=== PATIENT | female | born 1945 | race Caucasian/White ===

== ENCOUNTER → 2016-12-18 | Outpatient (CLI) | payer MEDICARE, BC | END | disposition home or self-care (01) | LOC: LABWHC1 14:10 | PROVIDERS: ATTEND Internal Medicine Endocrinology, Diabetes & Metabolism | DX: E03.9 Hypothyroidism, unspecified (principal) | CPT/HCPCS: 36415; 84443 ==

== ENCOUNTER → 2017-06-20 | Outpatient (CLI) | payer MEDICARE, BC ==
--- NOTE | 2017-06-20 11:36 | CT ---
EXAMINATION TYPE: CT brain wo con DATE OF EXAM: 06/20/2017 COMPARISON: NONE INDICATION: dizziness DLP: 1017.9 mGycm, Automated exposure control for dose reduction was used. CONTRAST: None CT of the brain is performed utilizing 3 mm thick sections through the posterior fossa and 3 mm thick sections through the remaining calvarium. Study is performed within 24 hours of arrival to the hosp [facility]. No abnormal hyperdensity is present to suggest an acute intracranial hemorrhage. No mass lesion is evident. No acute infarcts are evident. Ventricles and sulci are appropriate for the patient age. Paranasal sinuses and mastoid air cells within the [id number] are clear. Septal deviation is noted. Mild hyperostosis frontalis internus is present. IMPRESSIONS: 1. No acute intracranial process.
--- NOTE | 2017-06-20 12:34 | US ---
EXAMINATION TYPE: US carotid duplex BILAT DATE OF EXAM: 06/20/2017 COMPARISON: NONE CLINICAL HISTORY: R42 dizziness. EXAM MEASUREMENTS: RIGHT: Peak Systolic Velocity (PSV) cm/sec ----- Right CCA: 74.9 ----- Right ICA: 58.4 ----- Right ECA: 99.5 ICA/CCA ratio: 0.8 RIGHT: End Diastole cm/sec ----- Right CCA: 12.8 ----- Right ICA: 22.6 ----- Right ECA: 10.2 LEFT: Peak Systolic Velocity (PSV) cm/sec ----- Left CCA: 67.7 ----- Left ICA: 81.4 ----- Left ECA: 41.8 ICA/CCA ratio: 1.3 LEFT: End Diastole cm/sec ----- Left CCA: 12.2 ----- Left ICA: 33.5 ----- Left ECA: 0 VERTEBRALS (direction of flow): Right Vertebral: Antegrade Left Vertebral: Antegrade No significant stenosis visualized IMPRESSION: No hemodynamically significant stenosis. Mild cassidy scale plaquing within the right inter nal carotid artery and bilateral carotid bulbs.
--- NOTE | 2017-06-20 14:36 | USB ---
EXAMINATION TYPE: US breast complete RT DATE OF EXAM: 06/20/2017 COMPARISON: 11/08/2016 right breast ultrasound. CLINICAL HISTORY: R92.8 Abn mammo. Right breast ultrasound including all 4 quadrants, the retroareolar region, and axilla was performed. At the 4:00 location there is a 0.3 x 0.2 x 0.2 cm hypoechoic, avascular mass that is unchanged in si ze and morphology previously measuring 0.3 x 0.4 x 0.2 cm. This likely represents a small cyst and is probably benign. Six-month follow-up ultrasound is again recommended. At the 6:00 location there is a mass of mixed echogenicity with no definitive increased through trans mission measuring 0.5 x 0.2 x 0.4 cm previously measuring 0.4 x 0.2 cm. This likely represents a smal l cluster of cysts and again six month follow-up is recommended. At the 9:00 location there is an anechoic cyst with a well-defined posterior wall and increased throu gh transmission measuring 0.7 x 0.3 x 0.7 cm decreased in size as it previously measuring 1.0 x 0.8 x 0.4 cm. This is a benign finding and requires no further evaluation. At the 11:00 position, 3 cm from the nipple there is a 1.1 x 1.2 x 0.8 cm hypoechoic irregular mass w ith shadowing. This is a suspicious finding and ultrasound-guided core needle biopsy is recommended. Approximately 1.5 cm from this at the 11:00 position, 2 cm from the nipple there is a second hypoecho ic irregular mass measuring 1.6 x 1.5 x 1.0 cm. This is also suspicious finding and stereotactic guid ed core needle biopsy is recommended. IMPRESSION: 1. Suspicious finding. Two nipple cortical irregular shadowing masses within the right breast at the 11:00 position approximately 1.5 cm apart for which 2 site ultrasound guided core needle biopsy is re commended. 2. Probably benign findings at the 4:00 and 6:00 position for which six-month follow-up ultrasound is again recommended as these likely relate to a small cyst and cluster of cysts.
--- NOTE | 2017-06-21 17:43 | ECHOF ---
Referral Reason:R42 dizziness MEASUREMENTS -------- HEIGHT: 160.0 cm WEIGHT: 83.0 kg BP: 140/82 RVIDd: 2.9 cm (< 3.3) IVSd: 1.1 cm (0.6 - 1.1) LVIDd: 3.6 cm (3.9 - 5.3) LVPWd: 1.2 cm (0.6 - 1.1) IVSs: 1.3 cm LVIDs: 2.9 cm LVPWs: 1.6 cm LA Diam: 3.2 cm (2.7 - 3.8) LAESV Index (A-L): 17.71 ml/m Ao Diam: 3.0 cm (2.0 - 3.7) AV Cusp: 1.7 cm (1.5 - 2.6) LA Diam: 4.0 cm (2.7 - 3.8) MV EXCURSION: 11.453 mm (> 18.000) MV EF SLOPE: 43 mm/s (70 - 150) EPSS: 0.5 cm MV E Santosh: 0.48 m/s MV DecT: 404 ms MV A Santosh: 0.96 m/s MV E/A Ratio: 0.50 AR PHT: 580 ms RAP: 5.00 mmHg RVSP: 12.70 mmHg FINDINGS -------- Sinus rhythm. This was a technically adequate study. There is mild concentric left ventricular hypertrophy. Overall left ventricular systolic function is normal with, an EF between 55 - 60 %. The right ventricle is normal in size. Normal LA size by volume 22+/-6 ml/m2. The right atrial size is normal. There is mild aortic valve sclerosis. There is mild aortic regurgitation. Mild mitral annular calcification present. Mild mitral regurgitation is present. Mild tricuspid regurgitation present. There is no evidence of pulmonary hypertension. The right ventricular systolic pressure, as measured by Doppler, is 12.70mmHg. Trace/mild (physiologic) pulmonic regurgitation. The aortic root size is normal. There is no pericardial effusion. CONCLUSIONS -------- 1. There is mild concentric left ventricular hypertrophy. 2. Trace/mild (physiologic) pulmonic regurgitation. 3. There is no pericardial effusion. 4. Overall left ventricular systolic function is normal with, an EF between 55 - 60 %. 5. There is mild aortic valve sclerosis. 6. There is mild aortic regurgitation. 7. Mild mitral annular calcification present. 8. Mild mitral regurgitation is present. 9. Mild tricuspid regurgitation present. 10. There is no evidence of pulmonary hypertension. 11. The right ventricular systolic pressure, as measured by Doppler, is 12.70mmHg. BELT LOOP MACHINE OPERATOR: Courtney Dhillon RDCS
== END | disposition home or self-care (01) ==
LOC: RADCTMAIN 11:03
PROVIDERS: ATTEND Family Medicine
DX: R92.8 Other abnormal and inconclusive findings on diagnostic imaging of breast (principal); I65.23 Occlusion and stenosis of bilateral carotid arteries; I08.3 Combined rheumatic disorders of mitral, aortic and tricuspid valves; R42 Dizziness and giddiness
CPT/HCPCS: 70450; 93306; 93880

== ENCOUNTER → 2017-06-25 | Outpatient (CLI) | payer MEDICARE, BC | LOC: LABWHC1 09:43 | PROVIDERS: ATTEND Internal Medicine Endocrinology, Diabetes & Metabolism | DX: E03.8 Other specified hypothyroidism (principal) | CPT/HCPCS: 36415; 84443 ==

== ENCOUNTER → 2017-07-02 | Day surgery (SDC) | payer MEDICARE, BC ==
[2017-07-02 07:32] VITALS: RESP 12
[2017-07-02 09:03] VITALS: BP 143/83; PULSE 62; TEMP 98.3
--- NOTE | 2017-07-02 12:24 | USB ---
EXAMINATION TYPE: US biopsy breast VAD RT, MG diagnostic mammo RT wo CAD DATE OF EXAM: 07/02/2017 CLINICAL HISTORY: R92.8 ABN Mammogram. 2 site biopsy was recommended at the right 11:00 periareolar region however the second site could not be confidently localized and therefore biopsy was obtained at a single site at the 11:00 position. TECHNIQUE: Ultrasound guided core biopsy of right breast. COMPARISON: NONE FINDINGS: The procedure of ultrasound guided core biopsy was explained to the patient. Benefits, alternatives, and risks were discussed. An informed consent was then obtained. The patient was placed in supine positioning for imaging and for the procedure. The overlying skin was prepped and draped in usual sterile fashion. Lidocaine buffered with bicarbonate was used as anesthetic into the skin and subcutaneous tissue up to area of concern in the right 11:00 breast 3 cm from the nipple. A kaden was made with surgical scalpel. Under ultrasound guidance, a 12-gauge vacuum assisted biopsy gun device was used to obtain 5 core samples. Following this, a biopsy clip was left in lesion. This procedural mammogram demonstrates appropriate deployment. The patient tolerated the procedure well without any immediate complication. The patient was kept in the radiology department for short stay after the procedure and then discharged home in stable condition. IMPRESSION: Successful, uncomplicated ultrasound guided core biopsy of area of concern in the right breast, full pathology results to follow. See above discussion Pathology Results: Benign BREAST, RIGHT, 11:00, CORE BIOPSY: FIBROCYSTIC CHANGES INCLUDING FIBROSIS AND CYSTS. Recommendation Follow up ultrasound of the right breast in 6 months. YVES
== END ==
LOC: RADUSWWP 06:57
PROVIDERS: ATTEND Surgery
DX: N60.31 Fibrosclerosis of right breast (principal); N64.89 Other specified disorders of breast; R92.8 Other abnormal and inconclusive findings on diagnostic imaging of breast
CPT/HCPCS: 88305; 19083; G0206; A4648; J2001

== ENCOUNTER → 2017-07-24 | Outpatient (CLI) | payer MEDICARE, BC ==
--- NOTE | 2017-07-26 06:54 | ENG ---
ELECTRONYSTAGMOGRAM REPORT VNG REPORT: AGE: 72 VNG INDICATIONS: A 72-year-old female with dizziness onset 6 weeks ago of sudden onset staying the same, occurring in spells every few days lasting from a few minutes to a few hours. Dizziness can be precipitated by rolling over right or left in bed, going from a lying to a seated position, looking up or head back position, turning the head left or right, bending over or head down position or moving the head. Denies difficulty with hearing. Has steady tinnitus in both ears. Has occasional double vision. VNG FINDINGS: Saccades shows intact peak velocities, accuracies and latencies. Gaze with fixation shows no nystagmus in any of the directions of gaze including centrally with vision denied. Tracking shows no significant breakups. Optokinetic nystagmus shows no significant asymmetries at faster or slower speeds. Static position testing in 6 different positions with eyes opened and then with vision denied shows no elicitation of nystagmus. Oscoda-Hallpike maneuvers are negative bilaterally. Caloric testing shows a 4% unilateral right caloric weakness, which is within normal limits. Fixation index negative. IMPRESSION: Unremarkable VNG study. No evidence for vestibulopathy or benign positional vertigo. MMODL / IJN: [id number] /
== END | disposition home or self-care (01) ==
LOC: NEUROMAIN 08:49
PROVIDERS: ATTEND Otolaryngology
DX: R42 Dizziness and giddiness (principal)
CPT/HCPCS: 92537; 92540

== ENCOUNTER → 2017-08-08 | Outpatient (CLI) | payer MEDICARE, BC ==
[2017-08-08 10:40] LABS: Blood Urea Nitrogen 13 mg/dL (7-17); Non-African American GFR(MDRD) >60 (>60 ml/min/1.73 sqM)
== END | disposition home or self-care (01) ==
LOC: LABWHC1 09:39
PROVIDERS: ATTEND Otolaryngology
DX: Z01.812 Encounter for preprocedural laboratory examination (principal); R51 Headache; R42 Dizziness and giddiness; H53.2 Diplopia
CPT/HCPCS: 36415; 82565; 84520

== ENCOUNTER → 2017-08-16 | Outpatient (CLI) | payer MEDICARE, BC ==
--- NOTE | 2017-08-16 14:30 | CT ---
EXAMINATION TYPE: CT brain w con DATE OF EXAM: 08/16/2017 COMPARISON: 06/20/2017 INDICATION: headaches, dizziness DLP: 1079 mGycm, Automated exposure control for dose reduction was used. CONTRAST: [address] of the brain is performed utilizing 3 mm thick sections through the posterior fossa and 3 mm thick sections through the remaining calvarium. Study is performed within 24 hours of arrival to the hosp [facility]. No abnormal hyperdensity is present to suggest an acute intracranial hemorrhage. No mass lesion is evident. No acute infarcts are evident. Ventricles and sulci are appropriate for the patient age. Paranasal sinuses and mastoid air cells within the [id number] are clear. No abnormal enhancement is evident. IMPRESSIONS: 1. Unremarkable post contrast CT brain.
== END | disposition home or self-care (01) ==
LOC: RADCTMAIN 13:14
PROVIDERS: ATTEND Otolaryngology
DX: R51 Headache (principal); R42 Dizziness and giddiness
CPT/HCPCS: 70460; Q9967

== ENCOUNTER → 2018-01-03 | Outpatient (CLI) | payer MEDICARE, BC | END | disposition home or self-care (01) | LOC: LABWHC1 15:41 | PROVIDERS: ATTEND Internal Medicine Endocrinology, Diabetes & Metabolism | DX: E03.8 Other specified hypothyroidism (principal) | CPT/HCPCS: 36415; 84443 ==

== ENCOUNTER → 2018-03-10 | Outpatient (CLI) | payer MEDICARE, BC ==
--- NOTE | 2018-03-11 08:26 | USB ---
Reason for exam: follow-up at short interval from prior study. History: Patient is postmenopausal and history of other cancer. Benign US biopsy breast VAD RT of the right breast, July 02, 2017. Benign excisional biopsy of the left breast, March 19, 2000. Benign excisional biopsy of the right breast, 1995. Benign excisional biopsy of the left breast, 1993. Physical Findings: Nurse did not find any significant physical abnormalities on exam. US Breast RT Right breast ultrasound includes all four quadrants, the retroareolar region and axilla. Finding demonstrates a 0.7 x 0.4 x 0.2cm unchanged lesion at 5 o'clock, a 0.7 x 0.9 x 0.3cm oval, cystic, benign appearing lesion at 9 o'clock and a clip seen at heterogeneous, dense tissue at 11 o'clock, unchanged from priors. These results were verbally communicated with the patient and result sheet given to the patient on 03/10/18. ASSESSMENT: Benign, BI-RAD 2 RECOMMENDATION: Routine screening mammogram of both breasts in 8 months. Back on schedule for October 2018.
== END | disposition home or self-care (01) ==
LOC: RADUSWWP 08:05
PROVIDERS: ATTEND Family Medicine
DX: R92.8 Other abnormal and inconclusive findings on diagnostic imaging of breast (principal)

== ENCOUNTER 2018-07-02 08:05 | Observation (INO) | payer MEDICARE, BC ==
--- NOTE | 2018-07-02 08:35 | ED ---
General Adult HPI - General Chief complaint: Neuro Symptoms/Deficit Stated complaint: lt sided facial/hand numbess Time Seen by Provider: 07/02/18 08:21 Source: patient, RN notes reviewed Mode of arrival: ambulatory Limitations: no limitations - History of Present Illness Initial comments: Patient is a pleasant 73-year-old female presenting to the emergency department with tingling of the left face and left hand. Patient woke up around 4:15 in the morning with symptoms. Unclear exact onset. Symptoms have been steady since that time. Symptoms are mild. Patient denies any weakness or heaviness. Patient denies any speech problems. No confusion. No history of similar symptoms previously. Area of involvement is the left side of the mouth and just lateral to this. Also the left hand, mostly the thumb and index finger. - Related Data Home Medications Medication Instructions Recorded Confirmed Aspirin 81 mg PO DAILY 03/16/15 07/02/18 Levothyroxine Sodium [Synthroid] 125 mcg PO QAM 03/16/15 07/02/18 Lisinopril 10 mg PO QAM 03/16/15 07/02/18 Lovastatin 20 mg PO DAILY 03/16/15 07/02/18 Omeprazole 20 mg PO DAILY 03/16/15 07/02/18 Acetaminophen [Tylenol Arthritis] 1 each PO DAILY PRN 06/21/17 07/02/18 Ascorbic Acid [Vitamin C] 1 each PO DAILY 06/21/17 07/02/18 Calcium Carbonate/Vitamin D3 600 mg PO BID 06/21/17 07/02/18 [Calcium 600-Vit D3 200 Tablet] Cetirizine HCl 10 mg PO DAILY 06/21/17 07/02/18 Cholecalciferol [Vitamin D3] 5,000 unit PO DAILY 06/21/17 07/02/18 [place]-3 Fatty Acids/Fish Oil [Fish 1,360 mg PO DAILY 06/21/17 07/02/18 Oil 1,000 mg Softgel] Vitamin B Complex 1 each PO DAILY 06/21/17 07/02/18 Vitamin E 400 unit PO DAILY 06/21/17 07/02/18 Allergies Allergy/AdvReac Type Severity Reaction Status Date / Time No Known Allergies Allergy Verified 07/02/18 08:11 Review of Systems ROS Statement: Those systems with pertinent positive or pertinent negative responses have been documented in the HPI. ROS Other: All systems not noted in ROS Statement are negative. Constitutional: Denies: fever Eyes: Denies: eye pain ENT: Denies: ear pain Respiratory: Denies: dyspnea Cardiovascular: Denies: chest pain Endocrine: Denies: fatigue Gastrointestinal: Denies: abdominal pain Genitourinary: Denies: dysuria Musculoskeletal: Denies: back pain Skin: Denies: rash Neurological: Reports: paresthesias. Denies: headache, weakness, confusion Past Medical History Past Medical History: Cancer, Deep Vein Thrombosis (DVT), GERD/Reflux, Hyperlipidemia, Hypertension, Osteoarthritis (OA), Thyroid Disorder Additional Past Medical History / Comment(s): BASAL CELL SKIN CA, HX DVT BACK, RADIOACTIVE IODINE THYROID History of Any Multi-Drug Resistant Organisms: None Reported Past Surgical History: Section, Joint Replacement, Orthopedic Surgery, Tubal Ligation Additional Past Surgical History / Comment(s): THYROIDECTOMY, STEVIE BREAST BENIGN BX, TOTAL RIGHT KNEE, SEVERAL D&C, RIGHT HAND JOINT ARTHROPLASTY, RT ROTATOR CUFF Past Anesthesia/Blood Transfusion Reactions: Postoperative Nausea & Vomiting ( PONV) Additional Past Anesthesia/Blood Transfusion Reaction / Comment(s): WITH LONG SURGERIES Past Psychological History: No Psychological Hx Reported Smoking Status: Never smoker Past Alcohol Use History: None Reported Past Drug Use History: None Reported General Exam Limitations: no limitations General appearance: alert, in no apparent distress Head exam: Present: atraumatic Eye exam: Present: normal appearance, PERRL, EOMI. Absent: nystagmus ENT exam: Present: normal oropharynx Neck exam: Present: normal inspection Respiratory exam: Present: normal lung sounds bilaterally Cardiovascular Exam: Present: regular rate, normal rhythm GI/Abdominal exam: Present: soft. Absent: tenderness Extremities exam: Present: normal inspection Neurological exam: Present: alert, oriented X3, CN II-XII intact (Except for slight decreased sensation left lower face.) Expanded Neurological exam: Present: protecting the airway Patient oriented to: Present: person, place, time Speech: Present: fluid speech Cranial nerves: EOM's Intact: Normal, Facial Sensation: Abnormal Left (Patient states slight decreased sensation near her mouth.) Cerebellar function: Finger to Nose: Normal Sensory exam: Upper Extremity Light Touch: Abnormal Left (Patient believes there is slight decreased sensation left thumb and index finger), Lower Extremity Light Touch: Normal Motor strength exam: RUE: 5, LUE: 5, RLE: 5, LLE: 5 Eye Response: (4) open spontaneously Motor Response: (6) obeys commands Verbal Response: (5) oriented Psychiatric exam: Present: normal affect, normal mood Skin exam: Present: normal color Course Vital Signs 07/02/18 07/02/18 07/02/18 08:07 09:00 10:00 Temperature 98.4 F Pulse Rate 87 76 72 Respiratory 18 18 20 Rate Blood Pressure 179/80 149/86 169/78 O2 Sat by Pulse 94 L 99 99 Oximetry EKG Findings - EKG Comments: EKG Findings:: Normal sinus rhythm 83. MD 158. QRS 132. QT 424. QTC 498. Left axis. Right bundle branch block. No acute ST change. Medical Decision Making - Medical Decision Making Patient reevaluated and resting comfortably in bed. Patient states symptoms have unchanged. Patient and family updated on results and plan. Case was discussed in detail with Dr. Machado, who will admit his patient. - Lab Data Result diagrams: 07/02/18 08:35 07/02/18 08:35 Lab Results 07/02/18 07/02/18 07/02/18 Range/Units 08:35 08:35 08:35 WBC 7.1 (3.8-10.6) k/uL RBC 5.20 (3.80-5.40) m/uL Hgb 15.3 (11.4-16.0) gm/dL Hct 44.4 (34.0-46.0) % MCV 85.3 (80.0-100.0) fL MCH 29.4 (25.0-35.0) pg MCHC 34.5 (31.0-37.0) g/dL RDW 12.5 (11.5-15.5) % Plt Count 331 (150-450) k/uL Neutrophils % 64 % Lymphocytes % 24 % Monocytes % 6 % Eosinophils % 3 % Basophils % 1 % Neutrophils # 4.5 (1.3-7.7) k/uL Lymphocytes # 1.7 (1.0-4.8) k/uL Monocytes # 0.4 (0-1.0) k/uL Eosinophils # 0.2 (0-0.7) k/uL Basophils # 0.1 (0-0.2) k/uL PT (9.0-12.0) sec INR (<1.2) APTT (22.0-30.0) sec Sodium 141 (137-145) mmol/L Potassium 4.6 (3.5-5.1) mmol/L Chloride 106 (98-107) mmol/L Carbon Dioxide 25 (22-30) mmol/L Anion Gap 10 mmol/L BUN 12 (7-17) mg/dL Creatinine 0.77 (0.52-1.04) mg/dL Est GFR (CKD-EPI)AfAm 88 (>60 ml/min/1.73 sqM) Est GFR (CKD-EPI)NonAf 76 (>60 ml/min/1.73 sqM) Glucose 185 H (74-99) mg/dL Calcium 10.3 H (8.4-10.2) mg/dL Total Bilirubin 0.6 (0.2-1.3) mg/dL AST 27 (14-36) U/L ALT 27 (9-52) U/L Alkaline Phosphatase 72 (38-126) U/L Total Creatine Kinase 49 (30-135) U/L CK-MB (CK-2) 0.6 (0.0-2.4) ng/mL CK-MB (CK-2) Rel Index 1.2 Troponin I <0.012 (0.000-0.034) ng/mL Total Protein 7.5 (6.3-8.2) g/dL Albumin 4.3 (3.5-5.0) g/dL 07/02/18 Range/Units 08:35 WBC (3.8-10.6) k/uL RBC (3.80-5.40) m/uL Hgb (11.4-16.0) gm/dL Hct (34.0-46.0) % MCV (80.0-100.0) fL MCH (25.0-35.0) pg MCHC (31.0-37.0) g/dL RDW (11.5-15.5) % Plt Count (150-450) k/uL Neutrophils % % Lymphocytes % % Monocytes % % Eosinophils % % Basophils % % Neutrophils # (1.3-7.7) k/uL Lymphocytes # (1.0-4.8) k/uL Monocytes # (0-1.0) k/uL Eosinophils # (0-0.7) k/uL Basophils # (0-0.2) k/uL PT 9.7 (9.0-12.0) sec INR 1.0 (<1.2) APTT 23.9 (22.0-30.0) sec Sodium (137-145) mmol/L Potassium (3.5-5.1) mmol/L Chloride (98-107) mmol/L Carbon Dioxide (22-30) mmol/L Anion Gap mmol/L BUN (7-17) mg/dL Creatinine (0.52-1.04) mg/dL Est GFR (CKD-EPI)AfAm (>60 ml/min/1.73 sqM) Est GFR (CKD-EPI)NonAf (>60 ml/min/1.73 sqM) Glucose (74-99) mg/dL Calcium (8.4-10.2) mg/dL Total Bilirubin (0.2-1.3) mg/dL AST (14-36) U/L ALT (9-52) U/L Alkaline Phosphatase (38-126) U/L Total Creatine Kinase (30-135) U/L CK-MB (CK-2) (0.0-2.4) ng/mL CK-MB (CK-2) Rel Index Troponin I (0.000-0.034) ng/mL Total Protein (6.3-8.2) g/dL Albumin (3.5-5.0) g/dL - Radiology Data Radiology results: report reviewed (Computed tomography scan of the brain shows no acute intercranial process. Chronic changes.), image reviewed (Chest x-ray shows no acute process.) Disposition Clinical Impression: Transient cerebral ischemia Disposition: ADMITTED IP TO THIS HOSP Is patient prescribed a controlled substance at d/c from ED?: No Referrals: Adam Machado MD [Primary Care Provider] - 1-2 days Decision Time: 10:37
[2018-07-02 08:53] LABS: Basophils # (A) 0.1 k/uL (0-0.2); Basophils % (A) 1 %; Eosinophils # (A) 0.2 k/uL (0-0.7); Eosinophils % (A) 3 %; HCT 44.4 % (34.0-46.0); HGB 15.3 gm/dL (11.4-16.0); Lymphocytes # (A) 1.7 k/uL (1.0-4.8); Lymphocytes % (A) 24 %; MCH 29.4 pg (25.0-35.0); MCHC 34.5 g/dL (31.0-37.0); MCV 85.3 fL (80.0-100.0); Mean Platelet Volume 7.2; Monocytes # (A) 0.4 k/uL (0-1.0); Monocytes % (A) 6 %; Neutrophils # (A) 4.5 k/uL (1.3-7.7); Neutrophils % (A) 64 %; Platelet Count 331 k/uL (150-450); RDW 12.5 % (11.5-15.5); WBC 7.1 k/uL (3.8-10.6)
[2018-07-02 09:04] LABS: Albumin 4.3 g/dL (3.5-5.0); Calcium 10.3 mg/dL (8.4-10.2); Potassium 4.6 mmol/L (3.5-5.1); Total Bilirubin 0.6 mg/dL (0.2-1.3); Total Protein 7.5 g/dL (6.3-8.2)
[2018-07-02 09:09] LABS: Partial Thromboplastin Time 23.9 sec (22.0-30.0); Prothrombin Time 9.7 sec (9.0-12.0)
[2018-07-02 09:23] LABS: Creatine Kinase 49 U/L (30-135)
[2018-07-02 09:44] LABS: Creatine Kinase MB 0.6 ng/mL (0.0-2.4); Troponin I <0.012 ng/mL (0.000-0.034)
--- NOTE | 2018-07-02 09:57 | CT ---
EXAMINATION TYPE: CT brain wo con DATE OF EXAM: 07/02/2018 COMPARISON: 08/16/2017 INDICATION: Lt sided facial/hand numbness DLP: 993.9 mGycm, Automated exposure control for dose reduction was used. CONTRAST: None CT of the brain is performed utilizing 3 mm thick sections through the posterior fossa and 3 mm thick sections through the remaining calvarium. Study is performed within 24 hours of arrival to the hosp [facility]. No abnormal hyperdensity is present to suggest an acute intracranial hemorrhage. No mass lesion is evident. No acute infarcts are evident. There is mild periventricular white matter hypodensity, likely on the basis of chronic white matter ischemic changes. Ventricles and sulci are appropriate for the patient age. Paranasal sinuses and mastoid air cells within the [id number] are clear. IMPRESSIONS: 1. No acute intracranial process. 2. Chronic white matter ischemic changes
--- NOTE | 2018-07-02 10:00 | XR ---
EXAMINATION TYPE: XR chest 2V DATE OF EXAM: 07/02/2018 COMPARISON: NONE HISTORY: Altered mental status and weakness. Left-sided numbness. TECHNIQUE: Frontal and lateral views of the chest are obtained. FINDINGS: There is chronic emphysematous change without suspicious focal air space opacity, pleural effusion, or pneumothorax seen. The cardiac silhouette size is within normal limits with atheroscler otic change in the thoracic aorta. The osseous structures are demineralized. IMPRESSION: Chronic emphysematous change without acute pulmonary process.
[2018-07-02] MEDS ORDERED: ASPIRIN 325 MG TAB PO STA (10:37)
[2018-07-02] MEDS: SODIUM CHLORIDE 0.9% 1,000 ML IV SCH ×2 (12:02→20:32)
[2018-07-02 12:24] VITALS: RESP 18
[2018-07-02] MEDS ORDERED: ACETAMINOPHEN TAB 325 MG TAB PO PRN (12:56)
--- NOTE | 2018-07-02 13:25 | US ---
EXAMINATION TYPE: US carotid duplex BILAT DATE OF EXAM: 07/02/2018 COMPARISON: Carotid ultrasound June 20, 2017 CLINICAL HISTORY: Stenosis. numbness of left face and left fingers today EXAM MEASUREMENTS: RIGHT: Peak Systolic Velocity (PSV) cm/sec ----- Right CCA: 125.5cm/s after tortuous proximal portion ----- Right ICA: 65.5 ----- Right ECA: 52.4 ICA/CCA ratio: 1.3 RIGHT: End Diastole cm/sec ----- Right CCA: 16.1 ----- Right ICA: 24.1 ----- Right ECA: 10.6 LEFT: Peak Systolic Velocity (PSV) cm/sec ----- Left CCA: 52.2 ----- Left ICA: 117.4 ----- Left ECA: 27.2 ICA/CCA ratio: 2.2 LEFT: End Diastole cm/sec ----- Left CCA: 17.5 ----- Left ICA: 38.2 ----- Left ECA: 0.0 VERTEBRALS (direction of flow): Right Vertebral: Antegrade Left Vertebral: Antegrade Rhythm: Normal Tortuous right CCA and tortuous left distal ICA is noted. Mild to moderate intimal wall changes are n oted at bilateral carotid bifurcation. No significant plaque or suspicious increased velocities is seen in internal carotid arteries bilater ally. Velocity measurements upper limits of normal in the left internal carotid artery on current ivette dy. IMPRESSION: No hemodynamically significant stenosis clearly seen in either internal carotid artery. Criteria for Assigning % of Stenosis / Diameter reduction (Estimation based on the indirect measurements of the internal carotid artery velocities (ICA PSV). 1. Normal (no stenosis)=ICA PSV < 125 cm/s: ratio < 2.0: ICA EDV<40 cm/s. 2. Less than 50% stenosis=ICA PSV < 125 cm/s: ratio < 2.0: ICA EDV<40 cm/s. 3. 50 to 69% stenosis=ICA PSV of 125 to 230 cm/s: ration 2.0 ? 4.0: ICA EDV 40-100 cm/s. 4. Greater than 70% stenosis to near occlusion= ICA PSV > 230 cm/s: ratio > 4.0: ICA EDV > 100 cm/s. 5. Near occlusion= ICA PSV velocities may be low or undetectable: variable ratio and ICA EDV. 6. Total occlusion=unable to detect flow.
--- NOTE | 2018-07-02 16:38 | ECHOF ---
Referral Reason:Thrombus MEASUREMENTS -------- HEIGHT: 162.6 cm WEIGHT: 83.9 kg BP: 169/78 IVSd: 1.2 cm (0.6 - 1.1) LVIDd: 2.6 cm (3.9 - 5.3) LVPWd: 1.4 cm (0.6 - 1.1) IVSs: 1.6 cm LVIDs: 1.4 cm LVPWs: 1.7 cm Ao Diam: 2.8 cm (2.0 - 3.7) AV Cusp: 1.8 cm (1.5 - 2.6) LA Diam: 2.5 cm (2.7 - 3.8) MV EXCURSION: 12.148 mm (> 18.000) MV EF SLOPE: 29 mm/s (70 - 150) EPSS: 0.5 cm MV E Santosh: 0.53 m/s MV DecT: 341 ms MV A Santosh: 1.02 m/s MV E/A Ratio: 0.52 AV maxP.54 mmHg AV meanP.85 mmHg AR PHT: 506 ms RAP: 5.00 mmHg RVSP: 18.10 mmHg FINDINGS -------- Sinus rhythm. This was a technically good study. The left ventricular size is normal. There is mild concentric left ventricular hypertrophy. Overa ll left ventricular systolic function is normal with, an EF between 55 - 60 %. The right ventricle is normal in size and function. The left atrium is normal in size. The right atrium is normal in size. Aortic valve is trileaflet and is moderately thickened. There is mild to moderate aortic valve scle rosis. There is mild aortic regurgitation. The mitral valve leaflets are mildly thickened. Mild mitral annular calcification present. Mild m itral regurgitation is present. Mild tricuspid regurgitation present. The right ventricular systolic pressure, as measured by Doppl er, is 18.10mmHg. Pulmonic valve appears structurally normal. The aortic root size is normal. Normal inferior vena cava with normal inspiratory collapse consistent with estimated right atrial pre ssure of 5 mmHg. The pericardium is normal. CONCLUSIONS -------- 1. Sinus rhythm. 2. This was a technically good study. 3. The left ventricular size is normal. 4. There is mild concentric left ventricular hypertrophy. 5. Overall left ventricular systolic function is normal with, an EF between 55 - 60 %. 6. The right ventricle is normal in size and function. 7. The left atrium is normal in size. 8. The right atrium is normal in size. 9. Aortic valve is trileaflet and is moderately thickened. 10. There is mild to moderate aortic valve sclerosis. 11. There is mild aortic regurgitation. 12. The mitral valve leaflets are mildly thickened. 13. Mild mitral annular calcification present. 14. Mild mitral regurgitation is present. 15. Mild tricuspid regurgitation present. 16. The right ventricular systolic pressure, as measured by Doppler, is 18.10mmHg. 17. Pulmonic valve appears structurally normal. 18. The aortic root size is normal. 19. Normal inferior vena cava with normal inspiratory collapse consistent with estimated right atrial pressure of 5 mmHg. 20. The pericardium is normal. TANK COOPER: Megan Hernandez RDCS
[2018-07-02] MEDS: CALCIUM CARBONATE 500 MG CHEWABLE PO SCH (20:29)
[2018-07-02] MEDS ORDERED: ATORVASTATIN 10 MG TAB PO SCH (21:00)
[2018-07-02] MEDS ORDERED: PANTOPRAZOLE 40 MG TABLET PO SCH (21:00)
--- NOTE | 2018-07-02 21:46 | P.CNNES ---
History of Present Illness Consult date: 07/02/18 History of Present Illness: The patient is a 73-year-old right-handed white female who states that she woke up at 4:15 AM with left upper and lower lip numbness and tingling and left side of the tongue numbness and tingling. She also complained of numbness and tingling of the left thumb and index finger this morning. This has since resolved this evening. The tongue numbness continues as well as a lip tingling. She presented to the hospital with these complaints. She denied any other associated complaints such as focal weakness, headache, vertigo, speech disturbance. Review of Systems Constitutional: Denies chills, Denies fever Cardiovascular: Denies chest pain, Denies shortness of breath Respiratory: Denies cough Genitourinary: Denies dysuria, Denies hematuria Musculoskeletal: Denies myalgias Neurological: Reports as per HPI Psychiatric: Reports as per HPI Past Medical History Past Medical History: Cancer, Deep Vein Thrombosis (DVT), GERD/Reflux, Hyperlipidemia, Hypertension, Osteoarthritis (OA), Thyroid Disorder Additional Past Medical History / Comment(s): Grave's disease, thyroidectomy, arthritis multiple joints and in low back, migraines, sinus problems at times, antral ulcer, benign colon polyps, benign gastric poly, past vertigo. History of Any Multi-Drug Resistant Organisms: None Reported Past Surgical History: Section, Joint Replacement, Orthopedic Surgery, Tubal Ligation Additional Past Surgical History / Comment(s): Several D&Cs, x2, thyroidectomy, bilateral breast benign biopsies, R knee arthroscopy, total right knee arthroplasty, R hand basal joint arthroplasty, R rotator cuff repair , colonoscopy/polypectomy, EGD/polypectomy, skin cancer removed from R jaw area and from R lower eyelid, benign growth removed from R lower eyelid, wedge resection bilateral ovaries d/t cysts. Past Anesthesia/Blood Transfusion Reactions: Postoperative Nausea & Vomiting ( PONV) Additional Past Anesthesia/Blood Transfusion Reaction / Comment(s): PONV with long surgeries Smoking Status: Never smoker - Past Family History Father Additional Family Medical History / Comment(s): Father had heart problems. He from a irregular rapid heart beat at the age of 71 yrs. Mother Family Medical History: Congestive Heart Failure (CHF), Coronary Artery Disease (CAD), Diabetes Mellitus Additional Family Medical History / Comment(s): Mother at the age of 86yrs from CHF. Medications and Allergies Home Medications Medication Instructions Recorded Confirmed Type Aspirin 81 mg PO [id number]/16/15 07/02/18 History Levothyroxine Sodium [Synthroid] 125 mcg PO QAM 03/16/15 07/02/18 History Lisinopril 10 mg PO QAM 03/16/15 07/02/18 History Lovastatin 20 mg PO HS 03/16/15 07/02/18 History Omeprazole 20 mg PO HS 03/16/15 07/02/18 History Acetaminophen [Tylenol Arthritis] 1 tab PO Q6H PRN 06/21/17 07/02/18 History Ascorbic Acid [Vitamin C] 500 mg PO DAILY 06/21/17 07/02/18 History Calcium Carbonate/Vitamin D3 600 mg PO BID 06/21/17 07/02/18 History [Calcium 600-Vit D3 200 Tablet] Cetirizine HCl 10 mg PO DAILY 06/21/17 07/02/18 History Cholecalciferol [Vitamin D3] 5,000 unit PO DAILY 06/21/17 07/02/18 History [place]-3 Fatty Acids/Fish Oil [Fish 1 cap PO DAILY 06/21/17 07/02/18 History Oil 1,000 mg Softgel] Vitamin B Complex 1 cap PO DAILY 06/21/17 07/02/18 History Vitamin E 400 unit PO DAILY 06/21/17 07/02/18 History Magnesium Oxide [Mag-Ox] 400 mg PO DAILY 07/02/18 07/02/18 History Allergies Allergy/AdvReac Type Severity Reaction Status Date / Time No Known Allergies Allergy Verified 07/02/18 11:44 Physical Examination - Vital Signs Vital Signs: Vital Signs Temp Pulse Pulse Resp BP BP Pulse Ox 07/02/18 15:37 96.7 F L 66 18 166/77 96 07/02/18 13:10 96.8 F L 71 18 160/83 95 07/02/18 12:37 98.0 F 80 18 165/77 98 07/02/18 11:37 98.3 F 80 18 175/93 07/02/18 10:37 98.4 F 82 18 154/86 07/02/18 10:00 72 20 169/78 99 07/02/18 09:00 76 18 149/86 99 07/02/18 08:07 98.4 F 87 18 179/80 94 L Intake and Output 07/02/18 07/02/18 07/02/18 06:59 14:59 22:59 Intake Total 240 Output Total 800 700 Balance -800 -460 Intake: Oral 240 Output: Urine 800 700 Other: Weight 83.915 kg - Constitutional General appearance: average body habitus - EENT EENT: PERRL, hearing intact, vision intact - Respiratory Respiratory: lungs clear - Cardiovascular Cardiovascular: regular rate, normal S1 - Integumentary Integumentary: normal - Neurologic Neurologic examination: Mental status: She was awake alert and oriented 3 her speech was fluent there was no a aphasia or dysarthria. Cranial nerve examination: PERRL, EOMI, VFF, face symmetric, tongue midline Speech examination: intact Sensorimotor examination: intact Detailed motor examination: grossly full strength in all extremities Detailed sensory examination: intact - Psychiatric Psychiatric: mood/affect appropriate Results - Laboratory Findings CBC and BMP: 07/02/18 08:35 07/02/18 08:35 Abnormal Lab Findings: Abnormal Labs 07/02/18 08:35 Glucose 185 H Calcium 10.3 H Assessment and Plan (1) Transient cerebral ischemia Current Visit: Yes Status: Acute SNOMED Code(s): 406264488 Plan: The patient is a 73-year-old woman who presents to the hospital with tingling of the left face and left hand since this morning. The left hand tingling has resolved and the left lip and tongue numbness continues. The patient may have had a TIA. Her risk factors for stroke include hyperlipidemia and hypertension. She had a CAT scan of the brain in the emergency room which showed no acute intracranial process. There was chronic white matter ischemic changes. She has had a carotid ultrasound which was unremarkable. Recommend aspirin 325 mg daily. Recommend MRI scan of the brain
[2018-07-03 03:19] LABS: Cholesterol 215 mg/dL (<200); HDL Cholesterol 41 mg/dL (40-60); LDL Cholesterol,Calculated 114 mg/dL (0-99); Triglycerides 298 mg/dL (<150)
[2018-07-03] MEDS: SODIUM CHLORIDE 0.9% 1,000 ML IV SCH (06:34)
--- NOTE | 2018-07-03 08:06 | P.HPIM ---
History of Present Illness H&P Date: 07/02/18 Chief Complaint: Facial numbness This is a history and physical on a 73-year-old white female who was presenting with tingling of the left face and left hand. The patient states she woke up this morning and had significant symptomatology. The symptoms have been mild but given her advanced age and comorbidities, she is appropriately admitted for observation. No dysarthria. No swallowing difficulties. The patient has an underlying history of ALLERGIES with hypothyroidism and hypertension. Review of Systems Constitutional: Denies chills, Denies fever Eyes: denies blurred vision, denies pain Ears, nose, mouth and throat: Denies headache, Denies sore throat Respiratory: Denies cough Gastrointestinal: Denies abdominal pain, Denies diarrhea, Denies nausea, Denies vomiting Genitourinary: Denies dysuria, Denies hematuria Neurological: Reports paresthesias, Reports sensory deficit Past Medical History Past Medical History: Cancer, Deep Vein Thrombosis (DVT), GERD/Reflux, Hyperlipidemia, Hypertension, Osteoarthritis (OA), Thyroid Disorder Additional Past Medical History / Comment(s): Grave's disease, thyroidectomy, arthritis multiple joints and in low back, migraines, sinus problems at times, antral ulcer, benign colon polyps, benign gastric poly, past vertigo. History of Any Multi-Drug Resistant Organisms: None Reported Past Surgical History: Section, Joint Replacement, Orthopedic Surgery, Tubal Ligation Additional Past Surgical History / Comment(s): Several D&Cs, x2, thyroidectomy, bilateral breast benign biopsies, R knee arthroscopy, total right knee arthroplasty, R hand basal joint arthroplasty, R rotator cuff repair , colonoscopy/polypectomy, EGD/polypectomy, skin cancer removed from R jaw area and from R lower eyelid, benign growth removed from R lower eyelid, wedge resection bilateral ovaries d/t cysts. Past Anesthesia/Blood Transfusion Reactions: Postoperative Nausea & Vomiting ( PONV) Additional Past Anesthesia/Blood Transfusion Reaction / Comment(s): PONV with long surgeries Smoking Status: Never smoker - Past Family History Father Additional Family Medical History / Comment(s): Father had heart problems. He from a irregular rapid heart beat at the age of 71 yrs. Mother Family Medical History: Congestive Heart Failure (CHF), Coronary Artery Disease (CAD), Diabetes Mellitus Additional Family Medical History / Comment(s): Mother at the age of 86yrs from CHF. Medications and Allergies Home Medications Medication Instructions Recorded Confirmed Type Aspirin 81 mg PO [id number]/16/15 07/02/18 History Levothyroxine Sodium [Synthroid] 125 mcg PO QAM 03/16/15 07/02/18 History Lisinopril 10 mg PO QAM 03/16/15 07/02/18 History Lovastatin 20 mg PO HS 03/16/15 07/02/18 History Omeprazole 20 mg PO HS 03/16/15 07/02/18 History Acetaminophen [Tylenol Arthritis] 1 tab PO Q6H PRN 06/21/17 07/02/18 History Ascorbic Acid [Vitamin C] 500 mg PO DAILY 06/21/17 07/02/18 History Calcium Carbonate/Vitamin D3 600 mg PO BID 06/21/17 07/02/18 History [Calcium 600-Vit D3 200 Tablet] Cetirizine HCl 10 mg PO DAILY 06/21/17 07/02/18 History Cholecalciferol [Vitamin D3] 5,000 unit PO DAILY 06/21/17 07/02/18 History [place]-3 Fatty Acids/Fish Oil [Fish 1 cap PO DAILY 06/21/17 07/02/18 History Oil 1,000 mg Softgel] Vitamin B Complex 1 cap PO DAILY 06/21/17 07/02/18 History Vitamin E 400 unit PO DAILY 06/21/17 07/02/18 History Magnesium Oxide [Mag-Ox] 400 mg PO DAILY 07/02/18 07/02/18 History Allergies Allergy/AdvReac Type Severity Reaction Status Date / Time No Known Allergies Allergy Verified 07/02/18 11:44 Physical Exam Vitals: Vital Signs Temp Pulse Pulse Resp BP BP Pulse Ox 07/02/18 11:37 98.3 F 80 18 175/93 07/02/18 10:37 98.4 F 82 18 154/86 07/02/18 10:00 72 20 169/78 99 07/02/18 09:00 76 18 149/86 99 07/02/18 08:07 98.4 F 87 18 179/80 94 L Intake and Output 07/01/18 07/02/18 07/02/18 22:59 06:59 14:59 Other: Weight 83.915 kg - Constitutional General appearance: no acute distress - EENT Eyes: EOMI - Neck Neck: no lymphadenopathy - Respiratory Respiratory: bilateral: CTA - Cardiovascular Rhythm: regular Heart sounds: normal: S1, S2 Abnormal Heart Sounds: no S3 Gallop - Gastrointestinal General gastrointestinal: soft, no tenderness Results CBC & Chem 7: 07/02/18 08:35 18 08:35 Labs: Abnormal Lab Results - Last 24 Hours (Table) 07/02/18 Range/Units 08:35 Glucose 185 H (74-99) mg/dL Calcium 10.3 H (8.4-10.2) mg/dL Thrombosis Risk Factor Assmnt - Choose All That Apply Any of the Below Risk Factors Present?: Yes Each Factor Represents 1 point: Obesity (BMI >25) Other Risk Factors: Yes Each Risk Factor Represents 2 Points: Age 61-74 years, Malignancy Other congenital or acquired thrombophilia - If yes, enter type in comment: No Thrombosis Risk Factor Assessment Total Risk Factor Score: 5 Thrombosis Risk Factor Assessment Level: High Risk Assessment and Plan (1) Transient cerebral ischemia Current Visit: Yes Status: Acute Code(s): G45.9 - TRANSIENT CEREBRAL ISCHEMIC ATTACK, UNSPECIFIED SNOMED Code(s): 572145143 (2) Hypothyroidism Current Visit: Yes Status: Acute Code(s): E03.9 - HYPOTHYROIDISM, UNSPECIFIED SNOMED Code(s): 44005830 (3) Allergic rhinitis Current Visit: Yes Status: Acute Code(s): J30.9 - ALLERGIC RHINITIS, UNSPECIFIED SNOMED Code(s): 84896046 Plan: Neurology consultation is pending Await echocardiogram and carotid Doppler. Check CBC and CMP in a.m. CODE STATUS to be verified. Time with Patient: Less than 30
--- NOTE | 2018-07-03 08:14 | P.PN ---
Subjective Progress Note Date: 07/03/18 Principal diagnosis: This continue present sent 3-year-old white female essentially admitted for TIA symptoms. She had left facial numbness and left hand numbness which is now resolved. I appreciate neurology input. MRI is pending today. She is requesting angiolytic related to No new complaints otherwise. Objective - Vital Signs Vital signs: Vital Signs Temp 96.1 F L 07/03/18 00:00 Pulse 69 07/03/18 04:00 Resp 18 07/03/18 04:00 BP 167/77 07/03/18 04:00 Pulse Ox 94 L 07/03/18 04:00 Intake & Output 07/02/18 07/03/18 07/03/18 18:59 06:59 18:59 Intake Total 240 Output Total 1500 300 Balance -1260 -300 Weight 83.915 kg 83.9 kg Intake: Oral 240 Output: Urine 1500 300 Other: Voiding Method Toilet - Constitutional General appearance: Present: average body habitus - EENT Eyes: Absent: abnormal pupil - Respiratory Respiratory: bilateral: CTA - Cardiovascular Rhythm: regular Heart sounds: normal: S1, S2 Abnormal Heart Sounds: Absent: S3 Gallop - Gastrointestinal General gastrointestinal: Present: soft. Absent: splenomegaly, tenderness - Neurologic Neurologic: Present: CNII-XII intact - Musculoskeletal Musculoskeletal: Present: gait normal. Absent: right sided weakness, left sided weakness - Psychiatric Psychiatric: Present: A&O x's 3 - Labs CBC & Chem 7: 07/02/18 08:35 07/02/18 08:35 Labs: Abnormal Lab Results - Last 24 Hours (Table) 07/02/18 07/02/18 Range/Units 08:35 08:35 Glucose 185 H (74-99) mg/dL Calcium 10.3 H (8.4-10.2) mg/dL Triglycerides 298 H (<150) mg/dL Cholesterol 215 H (<200) mg/dL LDL Cholesterol, Calc 114 H (0-99) mg/dL Assessment and Plan (1) Transient cerebral ischemia Current Visit: Yes Status: Acute Code(s): G45.9 - TRANSIENT CEREBRAL ISCHEMIC ATTACK, UNSPECIFIED SNOMED Code(s): 703506701 (2) Hypothyroidism Current Visit: Yes Status: Acute Code(s): E03.9 - HYPOTHYROIDISM, UNSPECIFIED SNOMED Code(s): 05208358 (3) Allergic rhinitis Current Visit: Yes Status: Acute Code(s): J30.9 - ALLERGIC RHINITIS, UNSPECIFIED SNOMED Code(s): 55320967 Plan: Await MRI results today. If negative, we'll DC with aspirin. Time with Patient: Less than 30
[2018-07-03] MEDS: CALCIUM CARBONATE 500 MG CHEWABLE PO SCH (08:30)
[2018-07-03] MEDS ORDERED: ASCORBIC ACID 500 MG TAB PO SCH (09:00)
[2018-07-03] MEDS ORDERED: CHOLECALCIFEROL 1,000 UNIT TAB PO SCH (09:00)
[2018-07-03] MEDS ORDERED: NON-FORMULARY DRUG (Vitamin B Complex [Vitamin B Complex] 1 CAP) PO SCH (09:00)
[2018-07-03] MEDS ORDERED: ASPIRIN 325 MG TAB PO SCH (09:00)
[2018-07-03] MEDS ORDERED: VITAMIN E 400 UNIT PO SCH (09:00)
[2018-07-03] MEDS ORDERED: LEVOTHYROXINE 112 MCG TAB PO SCH (09:00)
[2018-07-03] MEDS ORDERED: NON-FORMULARY DRUG (Omega-3 Fatty Acids/Fish Oil [Fish Oil 1,000 Mg Softgel] 1 CAP) PO SCH (09:00)
[2018-07-03] MEDS ORDERED: MAGNESIUM OXIDE 400 MG TAB PO SCH (09:00)
[2018-07-03] MEDS ORDERED: LORATADINE 10 MG TAB PO SCH (09:00)
[2018-07-03] MEDS ORDERED: LISINOPRIL 10 MG TAB PO SCH (09:00)
[2018-07-03] MEDS ORDERED: LORazepam 1 MG TAB PO PRN (09:57)
[2018-07-03 11:29] VITALS: TEMP 97
[2018-07-03 15:37] VITALS: BP 160/89; PULSE 74
--- NOTE | 2018-07-03 15:44 | MR ---
EXAMINATION TYPE: MR brain wo/w con DATE OF EXAM: 07/03/2018 2:44 PM COMPARISON: NONE HISTORY: lt sided facial/hand numbness upon admission CONTRAST: Patient received 7.5 mL intravenous Gadavist gadolinium contrast. Multiplanar and multispin-echo imaging of the brain was performed . Pre and post contrast enhanced i mages are obtained. The ventricles, basal cisterns and sulci overlying the cerebral convexities are mildly enlarged. There is evidence of mild periventricular white matter ischemic demyelination. Remote deep white matter insults are also noted. No acute edema is seen on diffusion weighted imaging. There is no evidence for midline shift or mass effect. Acute intracranial hemorrhage or extra-axial collection is not evident. No enhancing lesions are seen. The paranasal sinuses and mastoid air cells are well-aerated. IMPRESSION: Age-related atrophic and chronic small vessel ischemic change. No acute intracranial process at this time. No enhancing lesions are seen.
--- NOTE | 2018-07-03 16:28 | P.DS ---
Providers Date of admission: 07/02/18 10:37 Expected date of discharge: 07/03/18 Attending physician: Adam Machado Consults: 07/02/18 10:38 Consult Physician Urgent Consulting Provider: Eileen Garcia Consult Reason/Comments: tia Do you want consulting provider notified?: Yes Primary care physician: Adam Machado - Discharge Diagnosis(es) (1) Transient cerebral ischemia Status: Acute (2) Hypothyroidism Status: Acute (3) Allergic rhinitis Status: Acute Hospital Course: This is a discharge summary on 7 3-year-old white female centimeter for TIA symptoms including left facial numbness and left upper extremity numbness. The patient had appropriate evaluation including CT scan and MRI which did not show significant changes. She is discharged with TIA symptomatology and to start aspirin daily. She will follow with me in approximately one week. She is discharged stable condition without symptomatology tolerating diet and voiding without difficulty and ambulating without problem. Patient Condition at Discharge: Stable Plan - Discharge Summary Discharge Rx Participant: No New Discharge Prescriptions: New RX: Aspirin 325 mg PO DAILY #1 tab No Action Omeprazole 20 mg PO HS Lovastatin 20 mg PO HS Lisinopril 10 mg PO QAM RX: Levothyroxine Sodium [Synthroid] 125 mcg PO QAM RX: Aspirin 81 mg PO [id number]@1999 Ascorbic Acid [Vitamin C] 500 mg PO DAILY Acetaminophen [Tylenol Arthritis] 1 tab PO Q6H PRN PRN Reason: Pain RX: Cetirizine HCl 10 mg PO DAILY Calcium Carbonate/Vitamin D3 [Calcium 600-Vit D3 200 Tablet] 600 mg PO BID [place]-3 Fatty Acids/Fish Oil [Fish Oil 1,000 mg Softgel] 1 cap PO DAILY RX: Vitamin B Complex 1 cap PO DAILY RX: Vitamin E 400 unit PO DAILY Cholecalciferol [Vitamin D3] 5,000 unit PO DAILY Magnesium Oxide [Mag-Ox] 400 mg PO DAILY Discharge Medication List Lisinopril 10 mg PO QAM 03/16/15 [History] Lovastatin 20 mg PO HS 03/16/15 [History] Omeprazole 20 mg PO HS 03/16/15 [History] RX: Aspirin 81 mg PO MOWEFR@2000 03/16/15 [History] RX: Levothyroxine Sodium [Synthroid] 125 mcg PO QAM 03/16/15 [History] Acetaminophen [Tylenol Arthritis] 1 tab PO Q6H PRN 06/21/17 [History] Ascorbic Acid [Vitamin C] 500 mg PO DAILY 06/21/17 [History] Calcium Carbonate/Vitamin D3 [Calcium 600-Vit D3 200 Tablet] 600 mg PO BID 06/21 [History] Cholecalciferol [Vitamin D3] 5,000 unit PO DAILY 06/21/17 [History] [place]-3 Fatty Acids/Fish Oil [Fish Oil 1,000 mg Softgel] 1 cap PO DAILY [History] RX: Cetirizine HCl 10 mg PO DAILY 06/21/17 [History] RX: Vitamin B Complex 1 cap PO DAILY 06/21/17 [History] RX: Vitamin E 400 unit PO DAILY 06/21/17 [History] Magnesium Oxide [Mag-Ox] 400 mg PO DAILY 07/02/18 [History] RX: Aspirin 325 mg PO DAILY #1 tab 07/03/18 [Rx] Follow up Appointment(s)/Referral(s): Adam Machado MD [Primary Care Provider] - 07/08/18 8:50 am (Only follow up appointment next week.) Eileen Garcia MD [STAFF PHYSICIAN] - 1 Week (Office will call with follow up appointment.) Patient Instructions/Handouts: Transient Ischemic Attack (DC), Heart Healthy Diet (DC), Hyperlipidemia (DC) Discharge Disposition: HOME SELF-CARE
== END 2018-07-03 16:22 | disposition home or self-care (01) ==
LOC: EC 08:05 → 6SEL 10:37
PROVIDERS: ADMIT Family Medicine; ATTEND Family Medicine
DX: G45.9 Transient cerebral ischemic attack, unspecified (principal); J30.9 Allergic rhinitis, unspecified; K21.9 Gastro-esophageal reflux disease without esophagitis; E78.5 Hyperlipidemia, unspecified; I10 Essential (primary) hypertension; E89.0 Postprocedural hypothyroidism; M46.94 Unspecified inflammatory spondylopathy, thoracic region; Z79.82 Long term (current) use of aspirin; Z79.899 Other long term (current) drug therapy; Z86.718 Personal history of other venous thrombosis and embolism; Z85.828 Personal history of other malignant neoplasm of skin; Z86.010 Personal history of colon polyps; Z83.3 Family history of diabetes mellitus; Z82.49 Family history of ischemic heart disease and other diseases of the circulatory system; Z79.890 Hormone replacement therapy; E66.9 Obesity, unspecified; Z68.31 Body mass index [BMI] 31.0-31.9, adult
CPT/HCPCS: 99285; 96360 ×2; 96361; 36415; 93005; 93306; 97161; 97165; 92523; 80061; 80053; 82550; 82553; 84484; 85025; 85610; 85730; 71046; 93880; 70450; 70553; G0378 ×2; A9581

== ENCOUNTER → 2018-07-08 | Outpatient (CLI) | payer MEDICARE, BC | END | disposition home or self-care (01) | LOC: LABWHC1 09:59 | PROVIDERS: ATTEND Internal Medicine Endocrinology, Diabetes & Metabolism | DX: E03.8 Other specified hypothyroidism (principal) | CPT/HCPCS: 36415; 84443 ==

== ENCOUNTER → 2019-01-14 | Outpatient (CLI) | payer MEDICARE, BC | END | disposition home or self-care (01) | LOC: LABWHC1 07:55 | PROVIDERS: ATTEND Internal Medicine Endocrinology, Diabetes & Metabolism | DX: E03.8 Other specified hypothyroidism (principal) | CPT/HCPCS: 36415; 84443 ==

== ENCOUNTER → 2019-01-14 | Outpatient (CLI) | payer MEDICARE, BC ==
--- NOTE | 2019-01-15 11:42 | MM ---
Reason for exam: screening (asymptomatic). Last mammogram was performed 1 year and 6 months ago. History: Patient is postmenopausal and history of other cancer. Benign US biopsy breast VAD RT of the right breast, July 02, 2017. Benign excisional biopsy of the left breast, March 19, 2000. Benign excisional biopsy of the right breast, 1995. Benign excisional biopsy of the left breast, 1993. Physical Findings: A clinical breast exam by your physician is recommended on an annual basis and results should be correlated with mammographic findings. MG 3D Screening Mammo W/Cad Bilateral CC and MLO view(s) were taken. Prior study comparison: July 02, 2017, right breast MG diagnostic mammo RT wo CAD. November 06, 2016, bilateral MG 3d screening mammo w/cad. The breast tissue is heterogeneously dense. This may lower the sensitivity of mammography. Finding #1: There is a 9 mm circumscribed oval mass in the lower outer quadrant, middle position of the right breast. Finding #2: There are typically benign round calcifications in both breasts. Previous mammotome biopsy in the right breast. There is a chronic nodularity in the right breast. Stable upper distortion left breast from known excisional biopsy. ASSESSMENT: Incomplete: need additional imaging evaluation, BI-RAD 0 RECOMMENDATION: Special view mammogram and ultrasound of the right breast. [facility] will attempt to contact patient to return for supplemental views and ultrasound.
== END | disposition home or self-care (01) ==
LOC: RADMAMWWP 07:31
PROVIDERS: ATTEND Family Medicine
DX: Z12.31 Encounter for screening mammogram for malignant neoplasm of breast (principal)
CPT/HCPCS: 77063; 77067

== ENCOUNTER → 2019-02-06 | Outpatient (CLI) | payer MEDICARE, BC ==
--- NOTE | 2019-02-09 08:17 | MM ---
Reason for exam: additional evaluation requested from abnormal screening. Last mammogram was performed 1 month ago. History: Patient is postmenopausal and history of other cancer. Benign US biopsy breast VAD RT of the right breast, July 02, 2017. Benign excisional biopsy of the left breast, March 19, 2000. Benign excisional biopsy of the right breast, 1995. Benign excisional biopsy of the left breast, 1993. Physical Findings: Nurse did not find any significant physical abnormalities on exam. MG 3D Work Up W/Cad RT CC and MLO view(s) were taken of the right breast. Prior study comparison: January 14, 2019, bilateral MG 3d screening mammo w/cad. July 02, 2017, right breast MG diagnostic mammo RT wo CAD. The breast tissue is heterogeneously dense. This may lower the sensitivity of mammography. There is chronic nodularity in the right breast. No distinct lesion persists on additional views. These results were verbally communicated with the patient and result sheet given to the patient on 02/06/19. ASSESSMENT: Negative, BI-RAD 1 RECOMMENDATION: Return to routine screening mammogram schedule for both breasts.
== END | disposition home or self-care (01) ==
LOC: RADMAMWWP 14:48
PROVIDERS: ATTEND Family Medicine
DX: R92.8 Other abnormal and inconclusive findings on diagnostic imaging of breast (principal)
CPT/HCPCS: 77065; G0279; 77061

== ENCOUNTER → 2019-07-29 | Outpatient (CLI) | payer MEDICARE, BC | END | disposition home or self-care (01) | LOC: LABWHC1 07:43 | PROVIDERS: ATTEND Internal Medicine Endocrinology, Diabetes & Metabolism | DX: E03.8 Other specified hypothyroidism (principal) | CPT/HCPCS: 36415; 84443 ==

== ENCOUNTER → 2020-07-27 | Outpatient (CLI) | payer MEDICARE, BC | END | disposition home or self-care (01) | LOC: LABWHC1 07:48 | PROVIDERS: ATTEND Internal Medicine Endocrinology, Diabetes & Metabolism | DX: E03.8 Other specified hypothyroidism (principal) | CPT/HCPCS: 36415; 84443 ==

== ENCOUNTER 2020-08-02 19:43 | Emergency (ER) | payer MEDICARE, BC ==
[2020-08-02 19:48] VITALS: TEMP 98.7
[2020-08-02 20:01] VITALS: RESP 16
[2020-08-02] MEDS ORDERED: MECLIZINE 12.5 MG TAB PO STA (20:04)
[2020-08-02] MEDS ORDERED: ONDANSETRON 4 MG/2 ML VIAL IVP STA (20:04)
[2020-08-02] MEDS ORDERED: SODIUM CHLORIDE 0.9% 500 ML 500 ML IV STA (20:04)
[2020-08-02] MEDS ORDERED: SODIUM CHLORIDE 0.9% 1,000 ML IV STA (20:04)
[2020-08-02 20:35] LABS: Appearance,Urine Clear (Clear); Bilirubin,Urine Negative (Negative); Blood,Urine Negative (Negative); Color,Urine Yellow; Glucose,Urine (UA) Negative (Negative); Hyaline Casts,Urine 4 /lpf (0-2); Ketones,Urine Negative (Negative); Leukocyte Esterase,Urine Trace (Negative); Mucus,Urine Rare /hpf; Nitrite,Urine Negative (Negative); Protein,Urine Negative (Negative); RBC,Urine <1 /hpf (0-5); Specific Gravity,Urine 1.013 (1.001-1.035); Urobilinogen,Urine <2.0 mg/dL (<2.0); WBC,Urine 1 /hpf (0-5)
[2020-08-02 20:42] LABS: Albumin 4.5 g/dL (3.5-5.0); Calcium 10.4 mg/dL (8.4-10.2); Total Bilirubin 0.4 mg/dL (0.2-1.3); Total Protein 7.7 g/dL (6.3-8.2)
--- NOTE | 2020-08-02 21:13 | CT ---
EXAMINATION TYPE: CT brain wo con DATE OF EXAM: 08/02/2020 COMPARISON: 07/02/2018 HISTORY: weakness, dizziness, vomiting CT DLP: 1056.4 mGycm Automated exposure control for dose reduction was used. There is cerebral atrophy. There is no mass effect nor midline shift. There is no sign of intracrania l hemorrhage. The calvarium is intact. There is no evidence of cerebral edema. IMPRESSION: Mild atrophy. No acute intracranial abnormality. No change.
--- NOTE | 2020-08-02 21:15 | XR ---
EXAMINATION TYPE: XR chest 2V DATE OF EXAM: 08/02/2020 COMPARISON: 07/02/2018 HISTORY: Dizziness TECHNIQUE: 2 views FINDINGS: There is no heart failure nor confluent pneumonic infiltrate. Costophrenic angles are clear . Heart size is normal. There are chest leads. IMPRESSION: No active cardiopulmonary disease. No change.
[2020-08-02 21:17] LABS: Basophils # (A) 0.1 k/uL (0-0.2); Basophils % (A) 1 %; Eosinophils # (A) 0.1 k/uL (0-0.7); Eosinophils % (A) 1 %; HCT 44.1 % (34.0-46.0); HGB 14.8 gm/dL (11.4-16.0); Lymphocytes # (A) 1.8 k/uL (1.0-4.8); Lymphocytes % (A) 16 %; MCH 29.1 pg (25.0-35.0); MCHC 33.6 g/dL (31.0-37.0); MCV 86.8 fL (80.0-100.0); Mean Platelet Volume 7.4; Monocytes # (A) 0.7 k/uL (0-1.0); Monocytes % (A) 7 %; Neutrophils # (A) 8.5 k/uL (1.3-7.7); Neutrophils % (A) 75 %; Platelet Count 344 k/uL (150-450); RBC 5.09 m/uL (3.80-5.40); RDW 12.2 % (11.5-15.5); WBC 11.4 k/uL (3.8-10.6)
[2020-08-02 21:34] VITALS: BP 145/77; PULSE 75
--- NOTE | 2020-08-02 21:34 | ED ---
Dizziness HPI - General Chief Complaint: Dizziness Stated Complaint: Dizziness Time Seen by Provider: 08/02/20 19:59 Source: patient, RN notes reviewed Mode of arrival: wheelchair Limitations: no limitations - History of Present Illness Initial Comments: 75-year-old female presents emergency Department chief complaint of dizziness. Patient states she was reading states that she went to ground felt very dizzy. Patient went to get up she felt nauseated after get sick but states she was too dizzy to stand up. Patient states that she did vomit. Patient states that symptoms have improved prior to come emergency department with her still mildly there. Patient denies chest pain, palpitations, abdominal pain, headache, blurred vision, ear pain, fever or chills. Patient offers no other complaints. Denies any focal weakness no extremity weakness - Related Data Home Medications Medication Instructions Recorded Confirmed Aspirin 81 mg PO [id number] 07/02/18 Levothyroxine Sodium [Synthroid] 125 mcg PO QA 03/16/15 07/02/18 Lovastatin 20 mg PO 03/16/15 07/02/18 Omeprazole 20 mg PO 03/16/15 07/02/18 lisinopriL [Lisinopril] 10 mg PO QAM 03/16/15 07/02/18 Acetaminophen [Tylenol Arthritis] 1 tab PO Q6H PRN 06/21/17 07/02/18 Ascorbic Acid [Vitamin C] 500 mg PO DAILY 06/21/17 07/02/18 Calcium Carbonate/Vitamin D3 600 mg PO BID 06/21/17 07/02/18 [Calcium 600-Vit D3 200 Tablet] Cetirizine HCl 10 mg PO DAILY 06/21/17 07/02/18 Cholecalciferol [Vitamin D3] 5,000 unit PO DAILY 06/21/17 07/02/18 Turner-3 Fatty Acids/Fish Oil [Fish 1 cap PO DAILY 06/21/17 07/02/18 Oil 1,000 mg Softgel] Vitamin B Complex 1 cap PO DAILY 06/21/17 07/02/18 Vitamin E 400 unit PO DAILY 06/21/17 07/02/18 Magnesium Oxide [Mag-Ox] 400 mg PO DAILY 07/02/18 07/02/18 Previous Rx's Medication Instructions Recorded Aspirin 325 mg PO DAILY #1 tab 07/03/18 Meclizine [Antivert] 25 mg PO TID PRN #15 tab 08/02/20 Ondansetron Odt [Zofran Odt] 4 mg PO Q8HR PRN #10 tab 08/02/20 Allergies Allergy/AdvReac Type Severity Reaction Status Date / Time No Known Allergies Allergy Verified 08/02/20 19:49 Review of Systems ROS Statement: Those systems with pertinent positive or pertinent negative responses have been documented in the HPI. ROS Other: All systems not noted in ROS Statement are negative. Past Medical History Past Medical History: Cancer, Deep Vein Thrombosis (DVT), GERD/Reflux, Hyperlipidemia, Hypertension, Osteoarthritis (OA), Thyroid Disorder Additional Past Medical History / Comment(s): Grave's disease, thyroidectomy, arthritis multiple joints and in low back, migraines, sinus problems at times, antral ulcer, benign colon polyps, benign gastric poly, past vertigo. History of Any Multi-Drug Resistant Organisms: None Reported Past Surgical History: Section, Joint Replacement, Orthopedic Surgery, Tubal Ligation Additional Past Surgical History / Comment(s): Several D&Cs, x2, thyroidectomy, bilateral breast benign biopsies, R knee arthroscopy, total right knee arthroplasty, R hand basal joint arthroplasty, R rotator cuff repair, colonoscopy/polypectomy, EGD/polypectomy, skin cancer removed from R jaw area and from R lower eyelid, benign growth removed from R lower eyelid, wedge resection bilateral ovaries d/t cysts., cataracts surgery Past Anesthesia/Blood Transfusion Reactions: Postoperative Nausea & Vomiting (PONV) Additional Past Anesthesia/Blood Transfusion Reaction / Comment(s): PONV with long surgeries Past Psychological History: No Psychological Hx Reported Smoking Status: Never smoker Past Alcohol Use History: Occasional Past Drug Use History: None Reported - Past Family History Father Additional Family Medical History / Comment(s): Father had heart problems. He from a irregular rapid heart beat at the age of 71 yrs. Mother Family Medical History: Congestive Heart Failure (CHF), Coronary Artery Disease (CAD), Diabetes Mellitus Additional Family Medical History / Comment(s): Mother at the age of 86yrs from CHF. General Exam General appearance: alert, in no apparent distress Head exam: Present: atraumatic, normocephalic, normal inspection Eye exam: Present: normal appearance, PERRL, EOMI. Absent: scleral icterus, conjunctival injection, periorbital swelling ENT exam: Present: normal exam, normal oropharynx, mucous membranes moist, TM's normal bilaterally Neck exam: Present: normal inspection, full ROM. Absent: tenderness, meningismus, lymphadenopathy Respiratory exam: Present: normal lung sounds bilaterally. Absent: respiratory distress, wheezes, rales, rhonchi, stridor Cardiovascular Exam: Present: regular rate, normal rhythm, normal heart sounds. Absent: systolic murmur, diastolic murmur, rubs, gallop, clicks GI/Abdominal exam: Present: soft, normal bowel sounds. Absent: distended, tenderness, guarding, rebound, rigid Extremities exam: Present: normal inspection, full ROM, normal capillary refill. Absent: tenderness, pedal edema, joint swelling, calf tenderness Back exam: Present: full ROM. Absent: tenderness Neurological exam: Present: alert, oriented X3, CN II-XII intact, reflexes normal, other (Finger to nose intact bilaterally). Absent: motor sensory deficit Course Vital Signs 08/02/20 08/02/20 08/02/20 19:43 20:01 21:06 Temperature 98.7 F Pulse Rate 86 89 77 Respiratory 19 16 16 Rate Blood Pressure 151/80 142/88 135/68 O2 Sat by Pulse 97 96 94 L Oximetry EKG Findings - EKG Comments: EKG Findings:: EKG performed at 20:07 normal sinus rhythm right bundle, rate of 77 TN 180 QRS 142 QT/QTC 452/511 there is no acute changes from prior EKG on 07/02/2018 - EKG Results: EKG: interpreted by [facility] Medical Decision Making - Medical Decision Making Patient reevaluated states that she's greatly improved she is updated and results including labs, EKG, chest x-ray, CT. Patient will be discharged in st able condition patient symptoms related to vertigo. Patient has no ataxia. - Lab Data Result diagrams: 08/02/20 21:02 08/02/20 20:13 Lab Results 08/02/20 08/02/20 08/02/20 Range/Units 20:13 20:13 20:13 WBC (3.8-10.6) k/uL RBC (3.80-5.40) m/uL Hgb (11.4-16.0) gm/dL Hct (34.0-46.0) % MCV (80.0-100.0) fL MCH (25.0-35.0) pg MCHC (31.0-37.0) g/dL RDW (11.5-15.5) % Plt Count (150-450) k/uL Neutrophils % % Lymphocytes % % Monocytes % % Eosinophils % % Basophils % % Neutrophils # (1.3-7.7) k/uL Lymphocytes # (1.0-4.8) k/uL Monocytes # (0-1.0) k/uL Eosinophils # (0-0.7) k/uL Basophils # (0-0.2) k/uL Sodium 139 (137-145) mmol/L Potassium 4.0 (3.5-5.1) mmol/L Chloride 104 (98-107) mmol/L Carbon Dioxide 26 (22-30) mmol/L Anion Gap 9 mmol/L BUN 17 (7-17) mg/dL Creatinine 0.79 (0.52-1.04) mg/dL Est GFR (CKD-EPI)AfAm 85 (>60 ml/min/1.73 sqM) Est GFR (CKD-EPI)NonAf 74 (>60 ml/min/1.73 sqM) Glucose 163 H (74-99) mg/dL Calcium 10.4 H (8.4-10.2) mg/dL Total Bilirubin 0.4 (0.2-1.3) mg/dL AST 28 (14-36) U/L ALT 19 (4-34) U/L Alkaline Phosphatase 83 (38-126) U/L Troponin I <0.012 (0.000-0.034) ng/mL Total Protein 7.7 (6.3-8.2) g/dL Albumin 4.5 (3.5-5.0) g/dL Urine Color Yellow Urine Appearance Clear (Clear) Urine pH 6.0 (5.0-8.0) Ur Specific Benedict 1.013 (1.001-1.035) Urine Protein Negative (Negative) Urine Glucose (UA) Negative (Negative) Urine Ketones Negative (Negative) Urine Blood Negative (Negative) Urine Nitrite Negative (Negative) Urine Bilirubin Negative (Negative) Urine Urobilinogen <2.0 (<2.0) mg/dL Ur Leukocyte Esterase Trace H (Negative) Urine RBC <1 (0-5) /hpf Urine WBC 1 (0-5) /hpf Hyaline Casts 4 H (0-2) /lpf Urine Mucus Rare H (None) /hpf 08/02/20 Range/Units 21:02 WBC 11.4 H (3.8-10.6) k/uL RBC 5.09 (3.80-5.40) m/uL Hgb 14.8 (11.4-16.0) gm/dL Hct 44.1 (34.0-46.0) % MCV 86.8 (80.0-100.0) fL MCH 29.1 (25.0-35.0) pg MCHC 33.6 (31.0-37.0) g/dL RDW 12.2 (11.5-15.5) % Plt Count 344 (150-450) k/uL Neutrophils % 75 % Lymphocytes % 16 % Monocytes % 7 % Eosinophils % 1 % Basophils % 1 % Neutrophils # 8.5 H (1.3-7.7) k/uL Lymphocytes # 1.8 (1.0-4.8) k/uL Monocytes # 0.7 (0-1.0) k/uL Eosinophils # 0.1 (0-0.7) k/uL Basophils # 0.1 (0-0.2) k/uL Sodium (137-145) mmol/L Potassium (3.5-5.1) mmol/L Chloride (98-107) mmol/L Carbon Dioxide (22-30) mmol/L Anion Gap mmol/L BUN (7-17) mg/dL Creatinine (0.52-1.04) mg/dL Est GFR (CKD-EPI)AfAm (>60 ml/min/1.73 sqM) Est GFR (CKD-EPI)NonAf (>60 ml/min/1.73 sqM) Glucose (74-99) mg/dL Calcium (8.4-10.2) mg/dL Total Bilirubin (0.2-1.3) mg/dL AST (14-36) U/L ALT (4-34) U/L Alkaline Phosphatase (38-126) U/L Troponin I (0.000-0.034) ng/mL Total Protein (6.3-8.2) g/dL Albumin (3.5-5.0) g/dL Urine Color Urine Appearance (Clear) Urine pH (5.0-8.0) Ur Specific Benedict (1.001-1.035) Urine Protein (Negative) Urine Glucose (UA) (Negative) Urine Ketones (Negative) Urine Blood (Negative) Urine Nitrite (Negative) Urine Bilirubin (Negative) Urine Urobilinogen (<2.0) mg/dL Ur Leukocyte Esterase (Negative) Urine RBC (0-5) /hpf Urine WBC (0-5) /hpf Hyaline Casts (0-2) /lpf Urine Mucus (None) /hpf Disposition Clinical Impression: Dizziness Disposition: HOME SELF-CARE Condition: Stable Instructions (If sedation given, give patient instructions): Dizziness (ED) Additional Instructions: Please return to the Emergency Department if symptoms worsen or any other concerns. Prescriptions: Meclizine [Antivert] 25 mg PO TID PRN #15 tab PRN Reason: Vertigo Ondansetron Odt [Zofran Odt] 4 mg PO Q8HR PRN #10 tab PRN Reason: Nausea Is patient prescribed a controlled substance at d/c from ED?: No Referrals: Adam Machado MD [Primary Care Provider] - 1-2 days Time of Disposition: 21:33
== END 2020-08-02 21:45 | disposition home or self-care (01) ==
LOC: EC 19:43
DX: R42 Dizziness and giddiness (principal); I10 Essential (primary) hypertension; E78.5 Hyperlipidemia, unspecified; M19.90 Unspecified osteoarthritis, unspecified site; E05.00 Thyrotoxicosis with diffuse goiter without thyrotoxic crisis or storm; K21.9 Gastro-esophageal reflux disease without esophagitis; Z79.899 Other long term (current) drug therapy; Z79.82 Long term (current) use of aspirin; Z79.890 Hormone replacement therapy; Z96.651 Presence of right artificial knee joint; Z85.828 Personal history of other malignant neoplasm of skin; Z96.691 Finger-joint replacement of right hand; Z86.718 Personal history of other venous thrombosis and embolism
CPT/HCPCS: 36415; 93005; 80053; 84484; 85025; 81001; 71046; 70450; 99284; 96374; 96361; J2405

== ENCOUNTER → 2020-11-02 | Outpatient (CLI) | payer MEDICARE, BC | END | disposition home or self-care (01) | LOC: LABWHC1 08:02 | PROVIDERS: ATTEND Internal Medicine Endocrinology, Diabetes & Metabolism | DX: E03.8 Other specified hypothyroidism (principal) | CPT/HCPCS: 36415; 84443 ==

== ENCOUNTER → 2021-05-01 | Outpatient (CLI) | payer MEDICARE | END | disposition home or self-care (01) | LOC: LABWHC1 11:12 | PROVIDERS: ATTEND Internal Medicine Endocrinology, Diabetes & Metabolism | DX: E03.8 Other specified hypothyroidism (principal) | CPT/HCPCS: 36415; 84443 ==